=== PATIENT | male | born 1955 | race American Indian/Alaskan Native ===

== ENCOUNTER 2018-02-04 22:00 | Emergency (ER) | payer SELFPAY ==
[2018-02-04] MEDS ORDERED: PEPCID PO ONE (23:37)
[2018-02-04] MEDS ORDERED: BENADRYL PO ONE (23:37)
--- NOTE | 2018-02-05 00:19 | XRay Report ---
FINAL REPORT EXAM: XR CHEST ROUTINE 2V HISTORY: Shortness of breath COMPARISON: None available. FINDINGS:: Frontal and lateral views of the chest obtained. Heart upper limits normal in size. Shallow inspiration. No focal consolidation or effusion. No pneumothorax. IMPRESSION:: Shallow inspiration. No gross focal consolidation.
[2018-02-05 00:20] LABS: Basophils % (Auto) 0.2 % (0.0-1.8); Eosinophils # (Auto) 0.4 K/mm3 (0.0-0.4); Eosinophils % (Auto) 7.3 % (0.0-4.3); Hematocrit 41.1 % (35.5-45.6); Lymphocytes % (Auto) 18.5 % (13.4-35.0); Mean Corpuscular HGB Conc 34 % (32-34); Mean Corpuscular Hemoglobin 33 pg (28-32); Mean Corpuscular Volume 96 fl (84-94); Monocytes # (Auto) 0.4 K/mm3 (0.0-0.8); Monocytes % (Auto) 7.3 % (0.0-7.3); Platelet Count 159 K/mm3 (140-440); Red Blood Count 4.29 M/mm3 (3.65-5.03); Red Cell Distribution Width 14.5 % (13.2-15.2)
[2018-02-05 00:32] LABS: BUN/Creatinine Ratio 13; Blood Urea Nitrogen 9 mg/dL (9-20); Calcium 8.8 mg/dL (8.4-10.2); Hemolysis Index 4
[2018-02-05] MEDS ORDERED: K-DUR PO ONE (06:37)
--- NOTE | 2018-02-05 06:38 | Emergency Department Report ---
HPI - General Chief Complaint: Allergic Reaction Time Seen by Provider: 02/05/18 06:27 - HPI HPI: Room 3 The patient is a 62-year-old male presented with the chief complaint of allergic reaction. The patient states approximately 4 days ago while visiting family use of soap in her household. The patient states for the past 2 days he developed a pruritic rash. The patient states he had the same outbreak last time when he used [employer] soap that he knows he is allergic to it. The patient states he's had bilateral lower extremity edema worsening for the past 2 -3 days. The patient states earlier he had some shortness of breath but felt like his asthma. The patient states it has since resolved. Patient only complains of pain in his legs when he scratches them because the skin is sensitive. Location: Diffuse body Duration: [See above] Quality: Pruritic Severity: Moderate Modifying factors: [see above] Context: [see above] Mode of transportation: Unknown ED Past Medical Hx - Past Medical History Hx Hypertension: Yes Hx Congestive Heart Failure: Yes Hx of Cancer: Yes (Colon s/p rsxn) Hx Asthma: Yes Additional medical history: Cardiac Disease, Sleep Apnea, - Surgical History Additional Surgical History: Colon Cancer - Family History Family history: no significant - Social History Smoking Status: Never Smoker Substance Use Type: None (denies illicit drug use) - Medications Home Medications: Home Medications Medication Instructions Recorded Confirmed Last Taken Type Carvedilol 20 mg PO BID 02/04/18 02/04/18 Unknown History Furosemide 40 mg PO DAILY 02/04/18 02/04/18 Unknown History Losartan 100 mg PO DAILY 02/04/18 02/04/18 Unknown History Pravastatin 40 mg PO HS 02/04/18 02/04/18 Unknown History amLODIPine 10 mg PO DAILY 02/04/18 02/04/18 Unknown History Famotidine [Pepcid] 20 mg PO BID #6 tablet 02/05/18 Unknown Rx Prednisone [predniSONE 10 mg 10 mg PO .TAPER #1 tab.ds.pk 02/05/18 Unknown Rx (6-Day Pack, 21 Tabs)] diphenhydrAMINE [Benadryl CAP] 50 mg PO Q6H #12 capsule 02/05/18 Unknown Rx ED Review of Systems ROS: Stated complaint: ALLERGIC REACTION/RASH Other details as noted in HPI Constitutional: denies: fever Eyes: denies: eye pain ENT: denies: throat pain Respiratory: shortness of breath Cardiovascular: denies: chest pain Gastrointestinal: denies: abdominal pain Genitourinary: denies: dysuria Musculoskeletal: denies: back pain Skin: rash, pruritus Neurological: denies: headache Physical Exam - Physical Exam Vital Signs: Vital Signs 02/04/18 02/05/18 02/05/18 23:15 03:24 04:00 Temperature 98.5 F Pulse Rate 75 81 Respiratory 18 18 Rate Blood Pressure 120/77 153/96 Blood Pressure [Left] O2 Sat by Pulse 96 95 92 Oximetry 02/05/18 02/05/18 04:34 05:00 Temperature 98.3 F Pulse Rate 76 77 Respiratory 20 20 Rate Blood Pressure 137/92 Blood Pressure 153/96 [Left] O2 Sat by Pulse 93 96 Oximetry Physical Exam: GENERAL: The patient is well-developed well-nourished male lying on stretcher not appearing to be in acute distress. [] HEENT: Normocephalic. Atraumatic. Extraocular motions are intact. Patient has moist mucous membranes. NECK: Supple. Trachea midline CHEST/LUNGS: Clear to auscultation. There is no respiratory distress noted. HEART/CARDIOVASCULAR: Regular. There is no tachycardia. There is no gallop rub or murmur. ABDOMEN: Abdomen is soft, nontender. Patient has normal bowel sounds. There is no abdominal distention. SKIN: There is a diffuse papular dry rash on bilateral upper and lower extremities. There is no erythema appreciated. There is 2+ bilateral lower extremity pitting edema. There is no diaphoresis. NEURO: The patient is awake, alert, and oriented. The patient is cooperative. The patient has normal speech MUSCULOSKELETAL: There is no evidence of acute injury. ED Course Vital Signs 02/04/18 02/05/18 02/05/18 23:15 03:24 04:00 Temperature 98.5 F Pulse Rate 75 81 Respiratory 18 18 Rate Blood Pressure 120/77 153/96 Blood Pressure [Left] O2 Sat by Pulse 96 95 92 Oximetry 02/05/18 02/05/18 04:34 05:00 Temperature 98.3 F Pulse Rate 76 77 Respiratory 20 20 Rate Blood Pressure 137/92 Blood Pressure 153/96 [Left] O2 Sat by Pulse 93 96 Oximetry ED Medical Decision Making - Lab Data Result diagrams: 02/05/18 00:05 02/05/18 00:05 Laboratory Tests 02/05/18 02/05/18 02/05/18 00:05 00:05 00:05 WBC 5.4 RBC 4.29 Hgb 14.0 Hct 41.1 MCV 96 H MCH 33 H MCHC 34 RDW 14.5 Plt Count 159 Lymph % (Auto) 18.5 [place] % (Auto) 7.3 Eos % (Auto) 7.3 H Baso % (Auto) 0.2 Lymph # 1.0 L [place] # 0.4 Eos # 0.4 Baso # 0.0 Seg Neutrophils % 66.7 Seg Neutrophils # 3.6 Sodium 141 Potassium 2.8 L* Chloride 100.4 Carbon Dioxide 26 Anion Gap 17 BUN 9 Creatinine 0.7 L Estimated GFR > 60 BUN/Creatinine Ratio 13 Glucose 96 Calcium 8.8 Troponin T < 0.010 NT-Pro-B Natriuret Pep 02/05/18 00:05 WBC RBC Hgb Hct MCV MCH MCHC RDW Plt Count Lymph % (Auto) [place] % (Auto) Eos % (Auto) Baso % (Auto) Lymph # [place] # Eos # Baso # Seg Neutrophils % Seg Neutrophils # Sodium Potassium Chloride Carbon Dioxide Anion Gap BUN Creatinine Estimated GFR BUN/Creatinine Ratio Glucose Calcium Troponin T NT-Pro-B Natriuret Pep 53.52 - EKG Data -: EKG Interpreted by Me EKG shows normal: sinus rhythm Rate: normal - EKG Data When compared to previous EKG there are: previous EKG unavailable Interpretation: nonspecific ST-T wave alyssa (T-wave inversion in lead V3, V4, V5) - Radiology Data Radiology results: report reviewed (chest x-ray), image reviewed (chest x-ray) interpreted by me: Chest x-ray-no focal infiltrates, no pneumothorax [facility] [address] [place] [address] XRay Report Signed Patient: SOL SAAVEDRA MR#: [id number] : 1955 Acct:[id number] Age/Sex: 62 / M ADM Date: 02/04/18 Loc: ED Attending Dr: Ordering Physician: ED MD AMANDO Date of Service: 02/04/18 Procedure(s): XR chest routine 2V Accession Number(s): [id number] cc: ED DOC, Fluoro Time In Minutes: FINAL REPORT EXAM: XR CHEST ROUTINE 2V HISTORY: Shortness of breath COMPARISON: None available. FINDINGS:: Frontal and lateral views of the chest obtained. Heart upper limits normal in size. Shallow inspiration. No focal consolidation or effusion. No pneumothorax. IMPRESSION:: Shallow inspiration. No gross focal consolidation. Transcribed By: LMA Dictated By: SHANNAN BURRELL MD Electronically Authenticated By: SHANNAN BURRELL MD Signed Date/Time: 02/05/1815 DD/ TD/TT: 02/05/1815 - Differential Diagnosis allergic reaction, CHF Critical care attestation.: If time is entered above; I have spent that time in minutes in the direct care of this critically ill patient, excluding procedure time. ED Disposition Clinical Impression: Allergic reaction, Peripheral edema Disposition: - TO HOME OR SELFCARE Is pt being admited?: No Does the pt Need Aspirin: No Condition: Stable Instructions: Urticaria (ED) Additional Instructions: You should take a total of 60 mg Lasix each day for the next 5 days and then return to your normal dosage of 40 mg daily. He should drink or use or eat bananas daily during this increase. Return to the emergency department immediately should you develop worsening symptoms, fever, inability to tolerate food or liquid or any other concerns. 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 Please follow up with her for further evaluation) Time of Disposition: 06:53
[2018-02-05 06:46] VITALS: BP 145/92
== END 2018-02-05 07:04 | disposition home or self-care (01) ==
LOC: ED 22:00
DX: T78.40XA Allergy, unspecified, initial encounter (principal); R60.9 Edema, unspecified; I11.0 Hypertensive heart disease with heart failure; I50.9 Heart failure, unspecified; X58.XXXA Exposure to other specified factors, initial encounter
CPT/HCPCS: 36415; 71046; 80048; 83880; 84484; 85025; 93005; 93010; 96374; 99284; J2930